=== PATIENT | female | born 1990 | race African-American/Black ===

== ENCOUNTER 2020-06-06 22:03 | Emergency (ER) | payer MEDICAID ==
[~2020-06-06] VITALS: Ht 165.1 cm; Wt 53.5 kg
[2020-06-06 22:15] VITALS: BP 118/74
--- NOTE | 2020-06-06 22:15 | NUR ---
ED Nurse Note: Patient walked into ED c/o pelvic pain accompanied by urinary hesitancy and frequency onset for the past 3 days, states that whenever she does inhale she feels a sharp substernal pain. o2 sat currently at 100% on RA. patient reports of not having covid tested yet but will do so tomorrow, denies any fevers or chills. patient is alert and oriented x4, IV started on right AC 20 gauge. will wait for further orders
[2020-06-06 22:43] LABS: APPEARANCE,URINE CLEAR; BILIRUBIN, URINE NEGATIVE (NEGATIVE); COLOR,URINE PALE YELLOW; GLUCOSE, URINE (UA) NEGATIVE (NEGATIVE); KETONES,URINE NEGATIVE (NEGATIVE); LEUKOCYTE ESTERASE ,URINE 1+ (NEGATIVE); NITRITE,URINE NEGATIVE (NEGATIVE); PH,URINE 8 (4.5-8.0); PROTEIN,URINE NEGATIVE (NEGATIVE); UROBILINOGEN,URINE NORMAL MG/DL (0.0-1.0)
--- NOTE | 2020-06-06 22:51 | Emergency Room Report ---
History of Present Illness General Chief Complaint: Pain Source: Patient Present Illness HPI Patient is a 29-year-old female presents for increased generalized abdominal discomfort and increased abdominal bloating. Reports having some intermittent chest discomfort. Associated body aches. Denies any shortness of breath. Denies being a smoker. She gradual onset of symptoms. Denies being . Reports having increased difficulty with urination. Allergies: Coded Allergies: PENICILLINS (Verified Allergy, Unknown, 06/06/20) COVID-19 Screening Contact w/high risk pt: No Experienced COVID-19 symptoms?: No COVID-19 Testing performed CLOTHER IN: No Patient History Past Medical History: see triage record Now: No Reviewed Nursing Documentation: PMH: Agreed; PSxH: Agreed Nursing Documentation-PMH Hx Asthma: Yes Review of Systems All Other Systems: negative except mentioned in HPI Physical Exam Vital Signs Date Time Temp Pulse Resp B/P (MAP) Pulse Ox O2 Delivery O2 Flow Rate FiO2 06/06/20 22:05 98.8 74 20 118/74 (89) 98 Room Air Sp02 EP Interpretation: reviewed, normal General Appearance: normal inspection, well appearing, no apparent distress, alert, non-toxic Head: atraumatic ENT: normal ENT inspection, hearing grossly normal, normal voice Neck: normal inspection, full range of motion, supple, no bony tend Respiratory: normal inspection, lungs clear, normal breath sounds, no re spiratory distress, no retraction, no wheezing Cardiovascular #1: regular rate, rhythm, no edema Gastrointestinal: normal inspection, normal bowel sounds, non tender, soft, no guarding, no hernia Genitourinary: no CVA tenderness Musculoskeletal: normal inspection, back normal, normal range of motion Neurologic: alert, motor strength/tone normal, 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 Differential diagnosis include was not limited to coronavirus infection, pneumonia, myocardial infarction, reflux among others. Patient appears to have overall benign exam and has no known risk factor for myocardial infarction or pulmonary embolism. EKG interpreted by me showed sinus bradycardia with a rate of [address] changes. Chest x- ray 1 view interpreted by me showed normal cardiac size without evident infiltrate with some increased interstitial lung markings. She does report having some history of asthma. She is given prescription for albuterol as well as ibuprofen. Patient was advised to have outpatient coronavirus testing performed. Patient chest pain appears to be chest wall related.She was given Mylanta.The patient is advised to follow up with primary care doctor in 1-2 days. Patient is advised to return if any worsening condition or if any changes in status that are concerning. This report is dictated with [employer] english drawer software which may occasionally lead to discrepancies related to use of this software. Labs Test 06/06/20 22:25 06/06/20 22:30 White Blood Count 3.2 K/UL (4.8-10.8) Red Blood Count 3.97 M/UL (4.20-5.40) Hemoglobin 13.1 G/DL (12.0-16.0) Hematocrit 38.4 % (37.0-47.0) Mean Corpuscular Volume 97 FL (80-99) Mean Corpuscular Hemoglobin 32.9 PG (27.0-31.0) Mean Corpuscular Hemoglobin Concent 34.0 G/DL (32.0-36.0) Red Cell Distribution Width 13.4 % (11.6-14.8) Platelet Count 153 K/UL (150-450) Mean Platelet Volume 11.6 FL (6.5-10.1) Neutrophils (%) (Auto) % (45.0-75.0) Lymphocytes (%) (Auto) % (20.0-45.0) Monocytes (%) (Auto) % (1.0-10.0) Eosinophils (%) (Auto) % (0.0-3.0) Basophils (%) (Auto) % (0.0-2.0) Troponin I 0.000 ng/mL (0.000-0.056) Urine Color Pale yellow Urine Appearance Clear Urine pH 8 (4.5-8.0) Urine Specific Cash 1.010 (1.005-1.035) Urine Protein Negative (NEGATIVE) Urine Glucose (UA) Negative (NEGATIVE) Urine Ketones Negative (NEGATIVE) Urine Blood Negative (NEGATIVE) Urine Nitrite Negative (NEGATIVE) Urine Bilirubin Negative (NEGATIVE) Urine Urobilinogen Normal MG/DL (0.0-1.0) Urine Leukocyte Esterase 1+ (NEGATIVE) Urine RBC 0-2 /HPF (0 - 2) Urine WBC 0 /HPF (0 - 2) Urine Squamous Epithelial Cells Few /LPF (NONE/OCC) Urine Bacteria Occasional /HPF (NONE) Urine HCG, Qualitative Negative (NEGATIVE) Last Vital Signs Date Time Temp Pulse Resp B/P (MAP) Pulse Ox O2 Delivery O2 Flow Rate FiO2 06/06/20 22:15 98.8 83 20 118/74 98 Room Air Status: improved Disposition: HOME, SELF-CARE Condition: Stable Scripts Ibuprofen* (MOTRIN*) 600 Mg Tablet 600 MG ORAL Q8H PRN for FOR PAIN, #30 TAB 0 Refills Prov: Philipp Palma MD 06/06/20 Albuterol Sulfate* (Albuterol Sulfate Hfa*) 8.5 Gm Hfa.aer.ad 2 PUFF INH Q6H, #1 INH Prov: Philipp Palma MD 06/06/20 Referrals: NON PHYSICIAN (PCP) Philipp Palma MD Jun 06, 2020 22:51
[2020-06-06] MEDS ORDERED: ALBUTEROL SULF8.5 G1 INH (23:14)
[2020-06-06] MEDS ORDERED: IBUPROFEN600 M1 ORAL (23:14)
[2020-06-06] MEDS ORDERED: Ketorolac 60mg Inj IM ONE (23:15)
[2020-06-06] MEDS ORDERED: Ketorolac 30mg Inj IV ONE (23:30)
[2020-06-06 23:40] LABS: HEMATOCRIT 38.4 % (37.0-47.0); HEMOGLOBIN 13.1 G/DL (12.0-16.0); MEAN CORPUSCULAR VOLUME 97 FL (80-99); PLATELET COUNT 153 K/UL (150-450); RED BLOOD COUNT 3.97 M/UL (4.20-5.40); RED CELL DISTRIBUTION WIDTH 13.4 % (11.6-14.8); WHITE BLOOD COUNT 3.2 K/UL (4.8-10.8)
[2020-06-07 00:10] VITALS: BP 121/71
--- NOTE | 2020-06-07 00:10 | NUR ---
ER DISCHARGE NOTE: Patient is cleared to be discharged per ERMD, pt is aox4, on room air, with stable vital signs. pt was given dc and prescription instructions, pt was able to verbalize understanding, pt id band and iv site removed without complications. pt is able to ambulate with steady gait. pt took all belongings.
--- NOTE | 2020-06-07 14:40 | Diagnostic Imaging Report ---
Procedure: XRAY Chest 1v Reason for study: Chest pain. Comparison films: None. FINDINGS: A single one view chest is obtained. Vascularity is normal. The lung roldan are clear bilaterally. Cardiac and mediastinal silhouette are within normal limits. CP angles are sharp. The bony thorax appear unremarkable. IMPRESSION: NO ACUTE CARDIOPULMONARY DISEASE.
--- NOTE | 2020-06-08 12:57 | Cardiology Report ---
APPROVED REPORT EKG Measurement Heart [id number] <Conclusion> Sinus bradycardia Anterior infarct, age undetermined Abnormal ECG
== END 2020-06-07 00:10 | disposition home or self-care (01) ==
LOC: EMR 22:20
DX: R07.9 Chest pain, unspecified (principal); J45.909 Unspecified asthma, uncomplicated; Z88.0 Allergy status to penicillin
CPT/HCPCS: 36415; 71045; 81003; 81025; 84484; 85025; 93005; 96372; 96374; Z7502; 99284